=== PATIENT | male | born 1950 | race Caucasian/White ===

== ENCOUNTER 2016-07-31 15:39 | Observation (INO) | payer OTHER ==
[~2016-07-31] VITALS: Ht 167.6 cm; Wt 102.4 kg
[~2016-07-31 15:39] MED LIST: ALBUTEROL SULF8.5 GM IH; AMOXIL875 MG PO; ASPIRIN E.C.81 M2 PO; CEFDINIR300 M1 PO; CEFTIN500 MG PO; FLEXERIL10 MG PO; HYCODAN SYRUP480 ML PO; OXYCODONE HCL5 MG PO; PERCOCET 5/31 TABLET PO; PREDNISONE20 MG PO; Robitussin DM PO; ULTRACET1 TABLET PO; VALIUM5 MG PO; VENTOLIN HFA18 GM IH; ZITHROMAX Z-PA250 MG PO; ZOFRAN4 MG PO
[2016-07-31 16:22] LABS: HEMATOCRIT 43.6 % (38.0-50.0); MCH 30.5 PG (29.0-34.0); MCHC 34.6 G/DL (30.0-36.0); MCV 88.1 FL (86-99); MEAN PLAT.VOLUME 9.7 uM^3 (9.0-12.4); PLATELET COUNT 192 K/uL (156-360); RBC DIS.WIDTH-CV 13.1 % (11.8-14.6); RBC DIS.WIDTH-SD 41.3 % (39-53); RED BLOOD COUNT 4.95 M/uL (4.00-5.50); WHITE BLOOD COUNT 8.9 K/uL (4.1-10.2)
[2016-07-31 16:37] LABS: CHLORIDE 106 mEq/L (99-109); POTASSIUM 4.1 mEq/L (3.7-5.4); SODIUM 141 mEq/L (136-147)
[2016-07-31 16:38] LABS: GLUCOSE 117 mg/dL (70-99)
[2016-07-31 16:40] LABS: ANION GAP 10 MEQ/L (2-14)
[2016-07-31 16:42] LABS: GFR ESTIMATE (CALCULATED) > 59 mL/min/
[2016-07-31 16:43] LABS: UREA NITROGEN (BUN) 16 mg/dL (9-23)
[2016-07-31 16:49] LABS: TROP-I INTERPRETATION NEGATIVE; TROPONIN-I < 0.01 ng/mL (0.0-0.30)
[2016-07-31 17:19] LABS: TOTAL BILIRUBIN 0.5 mg/dL (0.0-1.0)
[2016-07-31 17:20] LABS: ALKALINE PHOSPHATASE 68 IU/L (3-129)
[2016-07-31 17:22] LABS: DIRECT BILIRUBIN 0.2 mg/dL (0.0-0.3)
[2016-07-31 17:23] LABS: LIPASE 25 U/L (1.0-51.0)
[2016-07-31 18:59] LABS: TROP-I INTERPRETATION NEGATIVE; TROPONIN-I < 0.01 ng/mL (0.0-0.30)
[2016-07-31] MEDS ORDERED: FLEXERIL10 MG PO (22:19)
[2016-07-31] MEDS ORDERED: NEURONTIN100 MG PO (22:20)
[2016-07-31] MEDS ORDERED: PRILOSEC20 MG PO (22:20)
[2016-07-31] MEDS ORDERED: TRAMADOL HCL50 MG PO (22:21)
[2016-08-01 00:55] LABS: TROP-I INTERPRETATION NEGATIVE; TROPONIN-I < 0.01 ng/mL (0.0-0.30)
[2016-08-01 01:48] VITALS: BP 102/59
[2016-08-01 05:12] VITALS: BP 117/73
[2016-08-01 07:22] LABS: HDL CHOLESTEROL 34 MG/DL (Desirable>=40); LDL CHOLESTEROL 118 mg/dL (Desirable<100); NON-HDL CHOLESTEROL 143 mg/dL (Desirable<160); TOTAL CHOLESTEROL 177 mg/dL (Desirable<200); TRIGLYCERIDES 124 MG/DL (Normal: <150)
[2016-08-01 07:29] LABS: TROP-I INTERPRETATION NEGATIVE; TROPONIN-I < 0.01 ng/mL (0.0-0.30)
[2016-08-01 08:13] VITALS: BP 119/75
[2016-08-01] MEDS ORDERED: LOPRESSOR25 MG PO (11:34)
[2016-08-01] MEDS ORDERED: ASPIR-LOW81 MG PO (11:34)
[2016-08-01] MEDS ORDERED: VENTOLIN HFA18 GM IH (11:35)
[2016-08-01 12:19] VITALS: BP 106/67
== END 2016-08-01 12:33 | disposition home or self-care (01) ==
LOC: EME 15:39 → EDOF 22:18 → 5WEST 22:18
PROVIDERS: Physician Assistant; Physician Assistant Medical
DX: R07.89 Other chest pain (principal); G47.33 Obstructive sleep apnea (adult) (pediatric); I34.1 Nonrheumatic mitral (valve) prolapse; R06.02 Shortness of breath; E66.01 Morbid (severe) obesity due to excess calories; Z68.36 Body mass index [BMI] 36.0-36.9, adult; K21.9 Gastro-esophageal reflux disease without esophagitis; Z91.19 Patient's noncompliance with other medical treatment and regimen; Z82.49 Family history of ischemic heart disease and other diseases of the circulatory system; Z83.3 Family history of diabetes mellitus; Z88.5 Allergy status to narcotic agent; Z88.8 Allergy status to other drugs, medicaments and biological substances
CPT/HCPCS: 71020; 71250; 74177; 76705; 80048; 80061; 80076; 83690; 83880; 84484; 85027; 85379; 93005; 99281; 99285; G0378; J1170; J2270; J2405; J3360; J7030

== ENCOUNTER 2016-08-22 14:58 | Emergency (ER) | payer OTHER ==
[~2016-08-22] VITALS: Ht 167.6 cm; Wt 102.5 kg
[~2016-08-22 14:58] MED LIST changes: +ASPIR-LOW81 MG PO; +LOPRESSOR25 MG PO; +NEURONTIN100 MG PO; +PRILOSEC20 MG PO; +TRAMADOL HCL50 MG PO
[2016-08-22 15:50] LABS: HEMATOCRIT 45.1 % (38.0-50.0); MCH 30.2 PG (29.0-34.0); MCHC 35.3 G/DL (30.0-36.0); MCV 85.7 FL (86-99); MEAN PLAT.VOLUME 9.7 uM^3 (9.0-12.4); PLATELET COUNT 196 K/uL (156-360); RBC DIS.WIDTH-CV 12.6 % (11.8-14.6); RBC DIS.WIDTH-SD 38.7 % (39-53); RED BLOOD COUNT 5.26 M/uL (4.00-5.50); WHITE BLOOD COUNT 10.2 K/uL (4.1-10.2)
[2016-08-22 15:53] LABS: CHLORIDE 109 mEq/L (99-109); POTASSIUM 4.4 mEq/L (3.7-5.4); SODIUM 139 mEq/L (136-147)
[2016-08-22 15:54] LABS: GLUCOSE 104 mg/dL (70-99)
[2016-08-22 15:56] LABS: ANION GAP 10 MEQ/L (2-14)
[2016-08-22 15:58] LABS: GFR ESTIMATE (CALCULATED) > 59 mL/min/
[2016-08-22 15:59] LABS: UREA NITROGEN (BUN) 16 mg/dL (9-23)
[2016-08-22 16:34] LABS: D-DIMER ELISA 0.51 mg/L FEU (< 0.57)
[2016-08-22 17:57] LABS: BASE EXCESS -2.6 mEq/L (-3 to +3); BICARBONATE 22.6 mEq/L (22-26); CARBOXY HGB 1.1 % (0-5); COMMENTS - BLOOD GASES A+C+; FI02 21 %; METHEMOGLOBIN 0.7 % (0-1.5); PCO2 40 mm Hg (35-45); PO2 71 mm Hg (80-100); SITE RR; pH 7.36 (7.35-7.45)
[2016-08-22] MEDS ORDERED: ZANTAC150 MG PO (19:17)
[2016-08-22] MEDS ORDERED: PREDNISONE20 MG PO (19:17)
[2016-08-22] MEDS ORDERED: CLARITIN,ALAVAR10 MG PO (19:17)
[2016-08-22 19:56] VITALS: BP 117/74
== END 2016-08-22 20:00 | disposition home or self-care (01) ==
LOC: EME 14:58
PROVIDERS: Physician Assistant
DX: R06.02 Shortness of breath (principal); G47.30 Sleep apnea, unspecified; Z91.19 Patient's noncompliance with other medical treatment and regimen; T39.8X5A Adverse effect of other nonopioid analgesics and antipyretics, not elsewhere classified, initial encounter; J45.909 Unspecified asthma, uncomplicated; J44.9 Chronic obstructive pulmonary disease, unspecified; G89.29 Other chronic pain; K21.9 Gastro-esophageal reflux disease without esophagitis
CPT/HCPCS: 36600; 70450; 71020; 71275; 80048; 82803; 83880; 85027; 85379; 93005; 94640; 99281; 99285; J1200; J1885; J2930; J3010; J7030; J7512; S0028

== ENCOUNTER 2017-03-26 12:00 | Emergency (ER) | payer OTHER ==
[~2017-03-26] VITALS: Ht 167.6 cm; Wt 94.0 kg
[~2017-03-26 12:00] MED LIST changes: +CLARITIN,ALAVAR10 MG PO; +ZANTAC150 MG PO
[2017-03-26 12:27] LABS: HEMATOCRIT 44.5 % (38.0-50.0); MCHC 33.9 G/DL (30.0-36.0); MCV 88.3 FL (86-99); MEAN PLAT.VOLUME 9.4 uM^3 (9.0-12.4); PLATELET COUNT 210 K/uL (156-360); RBC DIS.WIDTH-CV 12.7 % (11.8-14.6); RBC DIS.WIDTH-SD 40.9 % (39-53); RED BLOOD COUNT 5.04 M/uL (4.00-5.50)
[2017-03-26 12:39] LABS: CHLORIDE 107 mEq/L (99-109); POTASSIUM 4.1 mEq/L (3.7-5.4); SODIUM 138 mEq/L (136-147)
[2017-03-26 12:41] LABS: GLUCOSE 112 mg/dL (70-99)
[2017-03-26 12:42] LABS: ANION GAP 12 MEQ/L (2-14)
[2017-03-26 12:45] LABS: GFR ESTIMATE (CALCULATED) > 59 mL/min/
[2017-03-26 12:46] LABS: UREA NITROGEN (BUN) 18 mg/dL (9-23)
[2017-03-26 12:50] LABS: TROP-I INTERPRETATION NEGATIVE; TROPONIN-I < 0.01 ng/mL (0.0-0.30)
[2017-03-26 13:26] LABS: TOTAL BILIRUBIN 0.7 mg/dL (0.0-1.0)
[2017-03-26 13:27] LABS: ALKALINE PHOSPHATASE 78 IU/L (3-129)
[2017-03-26 13:30] LABS: DIRECT BILIRUBIN 0.3 mg/dL (0.0-0.3)
[2017-03-26 13:31] LABS: LIPASE 20 U/L (1.0-51.0)
[2017-03-26 16:08] LABS: TROP-I INTERPRETATION NEGATIVE; TROPONIN-I < 0.01 ng/mL (0.0-0.30)
[2017-03-26] MEDS ORDERED: TYLENOL WITH C1 EACH PO (16:21)
[2017-03-26 16:40] VITALS: BP 125/85
== END 2017-03-26 16:42 | disposition home or self-care (01) ==
LOC: EME 12:00
PROVIDERS: Emergency Medicine
DX: R07.89 Other chest pain (principal); R10.11 Right upper quadrant pain; K21.9 Gastro-esophageal reflux disease without esophagitis; Z88.6 Allergy status to analgesic agent
CPT/HCPCS: 71020; 71275; 74177; 80048; 80076; 83690; 84484; 85027; 93005; 99281; 99284; J3010; J7030